=== PATIENT | female | born 1970 | race African-American/Black ===

== ENCOUNTER 2019-10-22 14:00 | Inpatient (IN) | payer MEDICARE, MEDICAID ==
[~2019-10-22] VITALS: Ht 167.6 cm; Wt 90.7 kg
[2019-10-22 16:03] LABS: BG BASE EXCESS 12.4 mmol/L (-2.0-2.0); BG CARBOXYHEMOGLOBIN 0.6 % (0.5-1.5); BG DEOXYHEMOGLOBIN 0.5 % (0.0-5.0); BG FRACTION INSPIRED OXYGEN 100; BG HCO3 ACT 38.4 mmol/L (22.0-26.0); BG METHEMOGLOBIN 0.1 % (0.0-1.5); BG OXYGEN SATURATION 99.5 % (92.0-98.5); BG OXYHEMOGLOBIN 98.8 % (94.0-97.0); BG PCO2 56.2 mmHg (35.0-45.0); BG PH 7.452 (7.350-7.450); BG PO2 256.1 mmHg (75.0-100.0); BG SAMPLE SITE LEFT RADIAL; BG TOTAL HEMOGLOBIN 11.9 g/dL (12.0-18.0); BG VENT MODE MASK - NRB
[2019-10-22 16:22] LABS: CHLORIDE 84 mEq/L (98-107)
[2019-10-22 16:30] LABS: D-DIMER 0.31 mg/L FEU (<0.50)
[2019-10-22 16:43] LABS: BASOPHILS % 0.7 % (0.0-2.0); EOSINOPHILS % 0.1 % (0.0-5.0); HEMATOCRIT. 36.4 % (36.0-48.0); HEMOGLOBIN. 12.1 g/dL (12.0-16.0); MEAN CORPUSCULAR HEMOGLOBIN 29.7 pg (28.0-32.0); MEAN CORPUSCULAR VOLUME 89.5 fL (81.0-99.0); NEUTROPHILS % 77.2 % (40.0-76.0); RED BLOOD CELL COUNT 4.07 mill/uL (4.2-5.4); RED CELL DISTRIBUTION WIDTH 18.2 % (11.6-14.6)
[2019-10-22 17:34] LABS: MEAN PLATELET VOLUME 9.9 fl (7.4-10.4); PLATELET 153 x1000/uL (130-400); PLATELET ESTIMATE NORMAL
[2019-10-22] MEDS: METHYLPREDNISOLONE SOD SUCC 125 MG/2 ML VIAL IV SCH (21:00)
[2019-10-22] MEDS ORDERED: DOCUSATE SODIUM 100MG CAPSULE PO PRN (21:15)
[2019-10-22] MEDS ORDERED: ONDANSETRON HCL 4MG/2ML INJ IV PRN (21:15)
[2019-10-22] MEDS ORDERED: HYDROCODONE/ACETAMINOPHEN 5/325MG TABLET PO PRN (21:15)
[2019-10-22] MEDS ORDERED: ENOXAPARIN 40MG/0.4ML SYR SUBCUT SCH (21:15)
[2019-10-22] MEDS ORDERED: GUAIFENESIN 200MG/10ML SUGAR FREE UDC PO PRN (21:15)
[2019-10-22] MEDS: CLONIDINE 0.1MG TABLET PO PRN (22:32)
[2019-10-22] MEDS: AMLODIPINE 10MG TABLET PO SCH (22:59)
[2019-10-22] MEDS ORDERED: LEVOFLOXACIN 500MG PREMIX 100 ML IV SCH (23:00)
[2019-10-22] MEDS ORDERED: AZITHROMYCIN 500 MG in DEXT 5% WATER 250 ML IV NR (23:15)
[2019-10-23] VITALS (7 sets, daily range): BP systolic 120–161; BP diastolic 62–93
[2019-10-23] MEDS: METHYLPREDNISOLONE SOD SUCC 125 MG/2 ML VIAL IV SCH ×3 (07:07→17:00)
[2019-10-23] MEDS: ENOXAPARIN 40MG/0.4ML SYR SUBCUT SCH ×2 (08:47→08:52)
[2019-10-23] MEDS: AMLODIPINE 10MG TABLET PO SCH (08:48)
[2019-10-23] MEDS: CLONIDINE 0.1MG TABLET PO PRN (08:48)
[2019-10-23] MEDS: ZINC SULFATE 220 MG ( 50 ) CAPSULE PO SCH (16:37)
[2019-10-23] MEDS ORDERED: ALBUTEROL 6.7GM HFA INHALER ORI SCH (18:00)
[2019-10-23] MEDS ORDERED: LORAZEPAM 2MG/ML CPJ IV PRN (18:00)
[2019-10-23] MEDS: ASCORBIC ACID 500 MG TABLET PO SCH (20:56)
[2019-10-23] MEDS ORDERED: AZITHROMYCIN 500 MG in DEXT 5% WATER 250 ML IV SCH (21:00)
[2019-10-23] MEDS: FLUTICASONE FUROATE 100 1 INH/CAP ORI SCH (21:00)
[2019-10-23 21:43] LABS: CLARITY URINE CLEAR (CLEAR); COLOR URINE YELLOW (YELLOW); KETONES URINE NEGATIVE (NEGATIVE); LEUKOCYTE ESTERASE URINE NEGATIVE (NEGATIVE); NITRITE URINE NEGATIVE (NEGATIVE); OCCULT BLOOD URINE NEGATIVE (NEGATIVE); PROTEIN URINE NEGATIVE (NEGATIVE); SPECIFIC GRAVITY URINE 1.023 (1.005-1.030); UROBILINOGEN URINE 0.2 E.U./dL (0.2-1.0)
[2019-10-23] MEDS: LEVOFLOXACIN 500MG PREMIX 100 ML IV SCH (21:48)
[2019-10-23] MEDS ORDERED: AZITHROMYCIN 250 MG in DEXT 5% WATER 250 ML IV SCH (23:00)
[2019-10-24] VITALS (8 sets, daily range): BP systolic 136–173; BP diastolic 58–93
[2019-10-24] MEDS: FLUTICASONE FUROATE 100 1 INH/CAP ORI SCH ×2 (08:00→08:56)
[2019-10-24] MEDS: ALBUTEROL 6.7GM HFA INHALER ORI SCH ×2 (08:00→13:05)
[2019-10-24] MEDS: METHYLPREDNISOLONE SOD SUCC 40 MG/ML VIAL IV SCH ×2 (08:54→16:40)
[2019-10-24] MEDS: ENOXAPARIN 40MG/0.4ML SYR SUBCUT SCH ×2 (08:55→09:00)
[2019-10-24] MEDS: AMLODIPINE 10MG TABLET PO SCH (08:55)
[2019-10-24] MEDS: ZINC SULFATE 220 MG ( 50 ) CAPSULE PO SCH (08:55)
[2019-10-24] MEDS: ASCORBIC ACID 500 MG TABLET PO SCH ×2 (08:55→20:31)
[2019-10-24] MEDS: CLONIDINE 0.1MG TABLET PO PRN (08:55)
[2019-10-24] MEDS: LEVOFLOXACIN 500MG PREMIX 100 ML IV SCH (20:31)
[2019-10-25] VITALS: BP 148/72
[2019-10-25 04:00] VITALS: BP 158/73
[2019-10-25 08:00] VITALS: BP 167/101
[2019-10-25] MEDS: ALBUTEROL 6.7GM HFA INHALER ORI SCH ×3 (08:30→23:57)
[2019-10-25] MEDS: ASCORBIC ACID 500 MG TABLET PO SCH ×2 (08:50→21:52)
[2019-10-25] MEDS: CLONIDINE 0.1MG TABLET PO PRN (08:50)
[2019-10-25] MEDS: ENOXAPARIN 40MG/0.4ML SYR SUBCUT SCH (08:50)
[2019-10-25] MEDS: METHYLPREDNISOLONE SOD SUCC 40 MG/ML VIAL IV SCH (08:50)
[2019-10-25] MEDS: ZINC SULFATE 220 MG ( 50 ) CAPSULE PO SCH (08:51)
[2019-10-25] MEDS: AMLODIPINE 10MG TABLET PO SCH (08:51)
[2019-10-25] MEDS: FLUTICASONE FUROATE 100 1 INH/CAP ORI SCH ×2 (09:00→15:20)
[2019-10-25 12:00] VITALS: BP 148/93
[2019-10-25] MEDS ORDERED: PREDNISONE 20MG TABLET PO SCH (13:15)
[2019-10-25] MEDS: LOSARTAN POTASSIUM 50 MG TABLET PO SCH (14:14)
[2019-10-25 16:00] VITALS: BP 158/84
[2019-10-25 20:00] VITALS: BP 164/98
[2019-10-25] MEDS: LEVOFLOXACIN 500MG TABLET PO SCH (21:52)
[2019-10-26] VITALS: BP 116/84
[2019-10-26] MEDS: ALBUTEROL 6.7GM HFA INHALER ORI SCH ×2 (05:34→23:05)
[2019-10-26 08:00] VITALS: BP 153/94
[2019-10-26] MEDS: ZINC SULFATE 220 MG ( 50 ) CAPSULE PO SCH (08:19)
[2019-10-26] MEDS: ASCORBIC ACID 500 MG TABLET PO SCH ×2 (08:20→23:05)
[2019-10-26] MEDS: AMLODIPINE 10MG TABLET PO SCH (08:20)
[2019-10-26] MEDS: PREDNISONE 20MG TABLET PO SCH (08:20)
[2019-10-26] MEDS: LOSARTAN POTASSIUM 50 MG TABLET PO SCH (08:20)
[2019-10-26] MEDS: ENOXAPARIN 40MG/0.4ML SYR SUBCUT SCH (08:21)
[2019-10-26] MEDS: FLUTICASONE FUROATE 100 1 INH/CAP ORI SCH ×2 (08:23→23:14)
[2019-10-26 12:00] VITALS: BP 148/93
[2019-10-26 16:00] VITALS: BP 131/68
[2019-10-26 20:00] VITALS: BP 147/87
[2019-10-26] MEDS: LEVOFLOXACIN 500MG TABLET PO SCH (23:05)
[2019-10-27] VITALS: BP_SYST 124; BP_SYST 154; BP_DIAS 43; BP_DIAS 83
[2019-10-27 04:00] VITALS: BP 135/83
[2019-10-27] MEDS: ALBUTEROL 6.7GM HFA INHALER ORI SCH ×3 (05:08→23:51)
[2019-10-27 08:00] VITALS: BP 150/91
[2019-10-27] MEDS: FLUTICASONE FUROATE 100 1 INH/CAP ORI SCH ×2 (08:45→20:33)
[2019-10-27] MEDS: AMLODIPINE 10MG TABLET PO SCH (08:46)
[2019-10-27] MEDS: ASCORBIC ACID 500 MG TABLET PO SCH ×2 (08:46→20:28)
[2019-10-27] MEDS: PREDNISONE 20MG TABLET PO SCH (08:46)
[2019-10-27] MEDS: LOSARTAN POTASSIUM 50 MG TABLET PO SCH (08:46)
[2019-10-27] MEDS: ZINC SULFATE 220 MG ( 50 ) CAPSULE PO SCH (08:46)
[2019-10-27] MEDS: ENOXAPARIN 40MG/0.4ML SYR SUBCUT SCH ×2 (08:47→08:56)
[2019-10-27 12:00] VITALS: BP 134/78
[2019-10-27] MEDS: METOPROLOL TARTRATE 25MG TABLET PO SCH ×2 (12:21→20:28)
[2019-10-27 16:00] VITALS: BP 125/77
[2019-10-27 20:00] VITALS: BP 116/70
[2019-10-27] MEDS: ENOXAPARIN 30MG/0.3ML SYR SUBCUT SCH (20:28)
[2019-10-27] MEDS: LEVOFLOXACIN 500MG TABLET PO SCH (20:28)
[2019-10-28 00:05] VITALS: BP 121/89
[2019-10-28 04:00] VITALS: BP 141/89
[2019-10-28] MEDS: ALBUTEROL 6.7GM HFA INHALER ORI SCH ×3 (05:18→17:06)
[2019-10-28 08:00] VITALS: BP 131/77
[2019-10-28] MEDS: ENOXAPARIN 30MG/0.3ML SYR SUBCUT SCH ×4 (09:00→20:57)
[2019-10-28] MEDS: FLUTICASONE FUROATE 100 1 INH/CAP ORI SCH ×2 (09:26→20:57)
[2019-10-28] MEDS: ASCORBIC ACID 500 MG TABLET PO SCH ×2 (09:27→20:38)
[2019-10-28] MEDS: ZINC SULFATE 220 MG ( 50 ) CAPSULE PO SCH (09:27)
[2019-10-28] MEDS: METOPROLOL TARTRATE 25MG TABLET PO SCH ×2 (09:28→20:55)
[2019-10-28] MEDS: PREDNISONE 20MG TABLET PO SCH (09:28)
[2019-10-28] MEDS: AMLODIPINE 10MG TABLET PO SCH (09:28)
[2019-10-28] MEDS: LOSARTAN POTASSIUM 50 MG TABLET PO SCH (09:28)
[2019-10-28 12:00] VITALS: BP 140/67
[2019-10-28 16:00] VITALS: BP 149/80
[2019-10-28 20:00] VITALS: BP 130/80
[2019-10-29 00:10] VITALS: BP 115/64
[2019-10-29] MEDS: ALBUTEROL 6.7GM HFA INHALER ORI SCH ×4 (00:18→17:59)
[2019-10-29 04:00] VITALS: BP 135/97
[2019-10-29 08:00] VITALS: BP 143/67
[2019-10-29] MEDS: PREDNISONE 20MG TABLET PO SCH (08:45)
[2019-10-29] MEDS: ZINC SULFATE 220 MG ( 50 ) CAPSULE PO SCH (08:45)
[2019-10-29] MEDS: ASCORBIC ACID 500 MG TABLET PO SCH ×2 (08:45→21:39)
[2019-10-29] MEDS: LOSARTAN POTASSIUM 50 MG TABLET PO SCH (08:47)
[2019-10-29] MEDS: AMLODIPINE 10MG TABLET PO SCH (08:47)
[2019-10-29] MEDS: METOPROLOL TARTRATE 25MG TABLET PO SCH ×2 (08:48→21:39)
[2019-10-29] MEDS: FLUTICASONE FUROATE 100 1 INH/CAP ORI SCH ×2 (08:56→21:44)
[2019-10-29] MEDS: ENOXAPARIN 30MG/0.3ML SYR SUBCUT SCH ×2 (08:56→21:38)
[2019-10-29 11:53] VITALS: BP 113/59
[2019-10-29 16:00] VITALS: BP 121/60
[2019-10-29 20:00] VITALS: BP 130/68
[2019-10-30] VITALS: BP 126/62
[2019-10-30 04:00] VITALS: BP 118/70
[2019-10-30] MEDS: ALBUTEROL 6.7GM HFA INHALER ORI SCH ×3 (05:33→18:19)
[2019-10-30 08:00] VITALS: BP 139/90
[2019-10-30] MEDS: ENOXAPARIN 30MG/0.3ML SYR SUBCUT SCH ×2 (09:00→20:34)
[2019-10-30] MEDS: PREDNISONE 20MG TABLET PO SCH (09:09)
[2019-10-30] MEDS: METOPROLOL TARTRATE 25MG TABLET PO SCH ×2 (09:09→20:34)
[2019-10-30] MEDS: AMLODIPINE 10MG TABLET PO SCH (09:09)
[2019-10-30] MEDS: ZINC SULFATE 220 MG ( 50 ) CAPSULE PO SCH (09:10)
[2019-10-30] MEDS: LOSARTAN POTASSIUM 50 MG TABLET PO SCH (09:10)
[2019-10-30] MEDS: ASCORBIC ACID 500 MG TABLET PO SCH ×2 (09:10→20:34)
[2019-10-30] MEDS: FLUTICASONE FUROATE 100 1 INH/CAP ORI SCH ×2 (09:16→20:38)
[2019-10-30 12:00] VITALS: BP 155/68
[2019-10-30 16:00] VITALS: BP 134/72
[2019-10-30 20:00] VITALS: BP 127/61
[2019-10-31] VITALS: BP 130/70
[2019-10-31] MEDS: ALBUTEROL 6.7GM HFA INHALER ORI SCH ×5 (00:13→23:13)
[2019-10-31 04:00] VITALS: BP 120/96
[2019-10-31 08:00] VITALS: BP 139/84
[2019-10-31] MEDS: FLUTICASONE FUROATE 100 1 INH/CAP ORI SCH ×2 (09:55→20:33)
[2019-10-31] MEDS: ASCORBIC ACID 500 MG TABLET PO SCH ×2 (09:55→20:28)
[2019-10-31] MEDS: ZINC SULFATE 220 MG ( 50 ) CAPSULE PO SCH (09:55)
[2019-10-31] MEDS: AMLODIPINE 10MG TABLET PO SCH (09:56)
[2019-10-31] MEDS: LOSARTAN POTASSIUM 50 MG TABLET PO SCH (09:56)
[2019-10-31] MEDS: METOPROLOL TARTRATE 25MG TABLET PO SCH ×2 (09:56→20:28)
[2019-10-31] MEDS: ENOXAPARIN 30MG/0.3ML SYR SUBCUT SCH ×2 (09:57→20:28)
[2019-10-31 10:48] LABS: EOSINOPHILS % 0.5 % (0.0-5.0); HEMATOCRIT. 37.3 % (36.0-48.0); HEMOGLOBIN. 12.5 g/dL (12.0-16.0); MEAN CORPUSCULAR HEMOGLOBIN 30.4 pg (28.0-32.0); MEAN CORPUSCULAR VOLUME 90.9 fL (81.0-99.0); MEAN PLATELET VOLUME 9.8 fl (7.4-10.4); MONOCYTES % 8.1 % (2.0-8.0); NEUTROPHILS % 40.4 % (40.0-76.0); PLATELET 160 x1000/uL (130-400)
[2019-10-31 10:56] LABS: CHLORIDE 91 mEq/L (98-107)
[2019-10-31 12:00] VITALS: BP 149/70
[2019-10-31] MEDS: SODIUM CHLORIDE 0.9% 1,000 ML IV SCH (13:00)
[2019-10-31 20:00] VITALS: BP 132/60
[2019-11-01] VITALS: BP 101/56
[2019-11-01 04:00] VITALS: BP 137/83
[2019-11-01] MEDS: SODIUM CHLORIDE 0.9% 1,000 ML IV SCH ×2 (04:21→22:20)
[2019-11-01] MEDS: ALBUTEROL 6.7GM HFA INHALER ORI SCH ×4 (04:54→23:58)
[2019-11-01 08:00] VITALS: BP 163/90
[2019-11-01] MEDS: ENOXAPARIN 30MG/0.3ML SYR SUBCUT SCH ×2 (09:00→21:08)
[2019-11-01] MEDS: ASCORBIC ACID 500 MG TABLET PO SCH ×2 (09:44→20:46)
[2019-11-01] MEDS: ZINC SULFATE 220 MG ( 50 ) CAPSULE PO SCH (09:44)
[2019-11-01] MEDS: METOPROLOL TARTRATE 25MG TABLET PO SCH ×2 (09:44→20:46)
[2019-11-01] MEDS: LOSARTAN POTASSIUM 50 MG TABLET PO SCH (09:45)
[2019-11-01] MEDS: AMLODIPINE 10MG TABLET PO SCH (09:45)
[2019-11-01] MEDS: FLUTICASONE FUROATE 100 1 INH/CAP ORI SCH ×2 (09:51→21:04)
[2019-11-01 12:00] VITALS: BP 141/76
[2019-11-01 16:00] VITALS: BP 131/63
[2019-11-01 20:00] VITALS: BP 155/93
[2019-11-01] MEDS ORDERED: THROAT LOZENGES-BENZOCAINE/MENTH/CETYLPYRD CL LOZENGES MM PRN (21:00)
[2019-11-02] VITALS: BP 118/75
[2019-11-02 04:00] VITALS: BP 133/64
[2019-11-02] MEDS: ALBUTEROL 6.7GM HFA INHALER ORI SCH ×2 (06:09→11:40)
[2019-11-02 08:00] VITALS: BP 162/72
[2019-11-02] MEDS: AMLODIPINE 10MG TABLET PO SCH (08:58)
[2019-11-02] MEDS: ENOXAPARIN 30MG/0.3ML SYR SUBCUT SCH ×2 (08:58→09:00)
[2019-11-02] MEDS: METOPROLOL TARTRATE 25MG TABLET PO SCH (08:58)
[2019-11-02] MEDS: LOSARTAN POTASSIUM 50 MG TABLET PO SCH (08:58)
[2019-11-02] MEDS: ZINC SULFATE 220 MG ( 50 ) CAPSULE PO SCH (08:58)
[2019-11-02] MEDS: ASCORBIC ACID 500 MG TABLET PO SCH (08:58)
[2019-11-02] MEDS: FLUTICASONE FUROATE 100 1 INH/CAP ORI SCH (09:04)
[2019-11-02 12:00] VITALS: BP 131/77
[2019-11-02] MEDS: SODIUM CHLORIDE 0.9% 1,000 ML IV SCH (15:00)
[2019-11-02 15:17] VITALS: BP 131/77
[2019-11-02 16:00] VITALS: BP 137/86
== END 2019-11-02 17:48 | DRG 871 ==
LOC: ER 14:00 → 7WST 18:56 → EDBEDREQSVC 19:04 → EDBEDREQ 19:04 → EDBEDREQSVC 21:35 → ENRESERV 10-23 04:47 → 7WST 10-23 06:25
PROVIDERS: ADMIT Hospitalist; ATTEND Hospitalist
DX: A41.89 Other specified sepsis (principal); U07.1 COVID-19; J96.00 Acute respiratory failure, unspecified whether with hypoxia or hypercapnia; J12.89 Other viral pneumonia; J44.1 Chronic obstructive pulmonary disease with (acute) exacerbation; J44.0 Chronic obstructive pulmonary disease with (acute) lower respiratory infection; J98.11 Atelectasis; E87.1 Hypo-osmolality and hyponatremia; J20.8 Acute bronchitis due to other specified organisms; F03.90 Unspecified dementia, unspecified severity, without behavioral disturbance, psychotic disturbance, mood disturbance, and anxiety; F20.9 Schizophrenia, unspecified; I11.0 Hypertensive heart disease with heart failure; I50.9 Heart failure, unspecified; E86.1 Hypovolemia; K21.9 Gastro-esophageal reflux disease without esophagitis; Z86.718 Personal history of other venous thrombosis and embolism; Z88.0 Allergy status to penicillin
CPT/HCPCS: 36415; 36600; 71045; 80048; 80053; 81003; 82375; 82805; 83605; 84484; 85025; 85379; 87635; 93005; 99291; J0456; J1650; J1956; J2920; J2930; J7030; J7060; J7512; U0003